=== PATIENT | female | born 2000 | race Hispanic/Latino ===

== ENCOUNTER 2022-09-19 17:30 | Emergency (ER) | payer OTHER ==
[~2022-09-19] VITALS: Ht 157.5 cm; Wt 54.4 kg
[2022-09-19 17:34] VITALS: BP 122/90
[2022-09-19 19:25] LABS: APPEARANCE,URINE CLEAR (CLEAR); BILIRUBIN,URINE NEGATIVE (NEGATIVE); COLOR,URINE COLORLESS (YELLOW); GLUCOSE, URINE (UA) NEGATIVE (NEGATIVE); KETONES,URINE 5 mg/dL (NEGATIVE); LEUKOCYTE ESTERASE ,URINE NEGATIVE Leu/uL (NEGATIVE); NITRATE,URINE NEGATIVE (NEGATIVE); OCCULT BLOOD,URINE NEGATIVE (NEGATIVE); PROTEIN,URINE NEGATIVE (NEGATIVE); UROBILINOGEN,URINE 0.2 mg/dL (0.2-1.0)
[2022-09-19 19:27] LABS: HCG,QUALITATIVE URINE NEGATIVE (NEGATIVE)
[2022-09-19 19:31] LABS: BACTERIA,URINE FEW /HPF (None Seen); MUCUS,URINE RARE LPF (None Seen); RBC,URINE 0-1 /HPF (0-1); SQUAMOUS EPITHELIAL CELL,UR RARE /HPF (0-2)
[2022-09-19] MEDS ORDERED: CYCL5TAB PO (19:54)
[2022-09-19] MEDS ORDERED: LIDO1ADH82 TP (19:54)
[2022-09-19] MEDS ORDERED: KETO10TA2 PO (19:54)
[2022-09-19] MEDS: CYCLOBENZAPRINE HCL 10 MG TABLET PO ONE (20:08)
[2022-09-19] MEDS: LIDOCAINE 5% TOPICAL PATCH TP ONE (20:08)
[2022-09-19] MEDS: KETOROLAC 15MG/ML VIAL (15MG/ML) IM ONE (20:08)
== END 2022-09-19 20:56 | disposition home or self-care (01) ==
LOC: EDH 17:30
DX: M62.830 Muscle spasm of back (principal)
CPT/HCPCS: 99284; 87077; 87088; 87186; 81001; 81025; 72100; 96372; J1885